=== PATIENT | male | born 1990 | race Hispanic/Latino ===

== ENCOUNTER 2018-05-20 15:30 | Emergency (ER) | payer BC ==
[~2018-05-20] VITALS: Ht 170.2 cm; Wt 68.0 kg
--- OUTSIDE RECORDS SUMMARY | 2018-05-20 15:34 | XMS REPORT | Clinical Summary ---
Author Author [facility] Address Unknown Phone Unavailable Care Team Providers Care Extractions Technician Name Role Phone Delon Givens MD PCP Allergies No Known Allergies Medications End Date Status Medication Sig Dispensed Refills Start Date Active metFORMIN (GLUCOPHAGE-XR) TAKE ONE (1) 30 tablet 0 500 MG 24 hr tablet TABLET(S) BY 8 MOUTH ONCE A DAY. Active sertraline (ZOLOFT) 100 TAKE ONE (1) 30 tablet 0 03/07/201 MG tablet TABLET(S) BY 9 MOUTH DAILY. Active sertraline (ZOLOFT) 100 TAKE ONE (1) 30 tablet 0 04/12/201 MG tablet TABLET(S) BY 9 MOUTH DAILY. 02/09/2018 Discontinued metFORMIN (GLUCOPHAGE-XR) Take 1 tablet 30 tablet 0 03/29/201 500 MG 24 hr tablet (500 mg 8 total) by mouth daily. 03/07/2018 Discontinued sertraline (ZOLOFT) 100 Take 1 tablet 30 tablet 5 05/12/201 MG tablet (100 mg 8 total) by mouth daily. Active Problems Problem Noted Date Essential hypertension, benign 05/17/2011 Overview: Converted from [facility] Type II or unspecified type diabetes mellitus without mention of 05/17/2011 complication, not stated as uncontrolled Overview: Converted from [facility] Encounters Care Team Description Date Type Specialty Delon Givens MD Medication Refill 04/12/2018 Telephone Internal Medicine Delon Givens MD Medication Refill 03/07/2018 Telephone Internal Medicine Delon Givens MD Medication Refill 02/09/2018 Telephone Internal Medicine after 05/19/2017 Family History Relation Name Status Comments Father Mother Alive Social History Date Tobacco Use Types Packs/Day Years Used Never Smoker Smokeless Tobacco: Never Used Alcohol Use Drinks/Week oz/Week Comments Yes Socially Sex Assigned at Date Recorded Not on file Industry Job Start Date Occupation Not on file Not on file Not on file Travel End Travel History Travel Start No recent travel history available. Last Filed Vital Signs Not on file Plan of Treatment Health Maintenance Due Date Last Done Comments INFLUENZA VACCINE 12/04/2017 Results Not on fileafter 05/19/2017 Insurance Payer Benefit Subscriber ID Type Phone Address Plan / Group [employer]UE [employer] xxxxxxxxxxxx PPO [phone] [id number] POS/PPO/[place] [address] O
[2018-05-20] MEDS ORDERED: IBUPROFEN 600 MG TAB PO STA (16:47)
[2018-05-20] MEDS ORDERED: IBUPROFEN 400 MG TAB PO STA (16:59)
--- NOTE | 2018-05-20 17:29 | Diagnostic Imaging Report ---
CT BRAIN [facility] HISTORY: Headache, trauma COMPARISON: None. TECHNIQUE: Noncontrast axial scans were obtained from skull base to the vertex. Coronal and sagittal reconstructions obtained from the axial data. One or more of the following dose reduction techniques were used: Automated exposure control, adjustment of the mA and/or kV according to patient size, and/or utilization of iterative reconstruction technique. DISCUSSION: Scalp/Skull: Unremarkable. Brain sulci: Appropriate for patient's age. Ventricles: Normal in size and configuration. No hydrocephalus. Extra-axial spaces: No masses or fluid collections. Parenchyma: No abnormal densities. No mass, hemorrhage, or large vascular territory acute infarct. Dural sinuses: No abnormal densities. Sellar/Suprasellar region: Intact. Skull base: Intact. Incidental findings: None. IMPRESSION: No intracranial abnormalities. Signed by: Dr. Pravin Lyn M.D. on 05/20/2018 5:25 PM
[2018-05-20 17:42] VITALS: BP 132/62
== END 2018-05-20 17:44 | disposition home or self-care (01) ==
LOC: FSED 15:30
DX: S06.0X1A Concussion with loss of consciousness of 30 minutes or less, initial encounter (principal); Y04.0XXA Assault by unarmed brawl or fight, initial encounter; Y92.89 Other specified places as the place of occurrence of the external cause
CPT/HCPCS: 70450; 99283